=== PATIENT | female | born 1970 | race Caucasian/White ===

== ENCOUNTER 2020-04-17 11:56 | Day surgery (SDC) | payer BC ==
[~2020-04-17] VITALS: Ht 157.5 cm; Wt 73.2 kg
[~2020-04-17 11:56] MED LIST: AMOCLA875 PO; BCP'S; HYDACE5 PO; LEVSOD112 PO; NEOCOLOTSU OT; PANT20 PO; Roxicodone5 MG PO
--- NOTE | 2020-04-17 16:14 | NUR ---
04/17/20 1614 Mildred Aguilera PT GIVEN 200MCG IV FENTANYL DURING RECOVERY AND ONE 5/325MG PERCOCET PO AND STILL RATES PAIN 7-8/10. PT'S BLOOD PRESSURE HAS GONE DOWN AND IS DOZING OFF AND ON, VERY CALM APPEARING WITH LEG ELEVATED. CONT TO MONITOR.
== END 2020-04-17 16:40 | disposition home or self-care (01) ==
LOC: ORSCSDS 11:56
PROVIDERS: Podiatrist Foot & Ankle Surgery
PROC: 0QSG04Z Reposition Right Tibia with Internal Fixation Device, Open Approach (ICD-10-PCS; principal; 2020-04-17 15:00)
PROC: 0QSJ04Z Reposition Right Fibula with Internal Fixation Device, Open Approach (ICD-10-PCS; principal; 2020-04-17 15:00)
DX: S82.851A Displaced trimalleolar fracture of right lower leg, initial encounter for closed fracture (principal); E03.9 Hypothyroidism, unspecified; G40.909 Epilepsy, unspecified, not intractable, without status epilepticus; Z79.899 Other long term (current) drug therapy
CPT/HCPCS: C1713; C1769; J0690; J1100; J2250; J2405; J2704; J2710; J3010; J7120

== ENCOUNTER 2020-10-28 08:32 | Day surgery (SDC) | payer BC ==
[~2020-10-28] VITALS: Ht 157.5 cm; Wt 73.5 kg
--- NOTE | 2020-10-28 09:31 | NUR ---
History, Chart, Medications and Allergies reviewed before start of procedure. Patient states colon prep results clear. Patient States Post-Procedure ride home has been arranged.
--- NOTE | 2020-10-28 09:50 | NUR ---
10/28/20 0950 RedJarek PATIENT DETERMINED TO BE ASA APPROPRIATE FOR PROPOFOL SEDATION PRIOR TO START OF PROCEDURE BY DR. COBB 3-LEAD EKG REVIEWED WITH PHYSICIAN PRIOR TO START OF PROCEDURE.Patient to ENDO 1History, Chart, Medications and Allergies reviewed before start of procedure.MONITOR INTACT WITH CONTINUOUS PULSE OXIMETRY AND INTERMITTENT BP.O2 VIA N/C INTACT THROUGHOUT SEDATION/PROCEDURE.
--- NOTE | 2020-10-28 10:30 | NUR ---
PT ABLE TO DRESS INDEPENDATLY. D/C INSTRUCTIONS GIVEN. PT DENIES QUESTIONS. RIDE HOME WAITING OUT FRONT.
== END 2020-10-28 23:05 | disposition home or self-care (01) ==
LOC: ORSCMMR 08:32
PROVIDERS: Internal Medicine Gastroenterology
PROC: 0DBK8ZX Excision of Ascending Colon, Via Natural or Artificial Opening Endoscopic, Diagnostic (ICD-10-PCS; principal; 2020-10-28 09:30)
DX: Z12.11 Encounter for screening for malignant neoplasm of colon (principal); D12.2 Benign neoplasm of ascending colon; E03.9 Hypothyroidism, unspecified; Z79.899 Other long term (current) drug therapy
CPT/HCPCS: 88305; J2704; J7120

== ENCOUNTER → 2021-05-27 | Outpatient (CLI) | payer BC ==
[2021-05-29 16:11] LABS: HPV 16 Negative (Negative); HPV 18 Negative (Negative); HPV OTHER HR TYPES Negative (Negative)
== END ==
LOC: LAB SHORT 17:42 → LAB 17:42
PROVIDERS: Family Medicine
DX: Z01.419 Encounter for gynecological examination (general) (routine) without abnormal findings (principal); Z88.1 Allergy status to other antibiotic agents; Z88.2 Allergy status to sulfonamides
CPT/HCPCS: 87624; G0145

== ENCOUNTER → 2024-12-01 | Outpatient (CLI) | payer BC | LOC: LAB SHORT 10:25 → LAB 10:25 | DX: R30.0 Dysuria (principal) | CPT/HCPCS: 87086 ==